=== PATIENT | female | born 1960 | race Caucasian/White ===

== ENCOUNTER → 2018-04-04 08:30 | Outpatient (CLI) | payer BC, SELFPAY ==
--- NOTE | 2018-04-04 | DI.MG.S_ITS ---
BILATERAL DIGITAL SCREENING MAMMOGRAM 3D/2D WITH CAD: 04/04/2018 CLINICAL: Routine screening. Family history of breast cancer. Comparison is made to exams dated: 03/30/2017 mammogram, 06/23/2015 mammogram, and 12/16/2012 mammogram - [facility]. The tissue of both breasts is extremely dense, which lowers the sensitivity of mammography. Current study was also evaluated with a Computer Aided Detection (CAD) system. No significant masses, calcifications, or other findings are seen in either breast. There has been no significant interval change. IMPRESSION: NEGATIVE There is no mammographic evidence of malignancy. A 1 year screening mammogram is recommended. This exam was interpreted at Station ID: [id number]. NOTE: For mammograms, a report in lay terms will be sent to the patient. Approximately 15% of breast malignancies will not be visualized mammographically. In the management of a palpable breast mass, a negative mammogram must not discourage biopsy of a clinically suspicious lesion. Electronically Signed By: Alex [email or web address]/[email or web address]:04/04/2018 09:34:30 letter sent: Normal Exam ACR BI-RADS Category 1: Negative [id number]
[2018-04-04 12:07] LABS: Add Manual Diff / Slide Review NO; Basophils Absolute Auto 0 /uL (0-100); Basophils Percent Auto 0.6 % (0-2); Eosinophils Absolute Auto 0 /uL (0-450); Eosinophils Percent Auto 0.7 % (2-4); Hematocrit 42.6 % (36-46); Hemoglobin 14.5 g/dL (12.0-16.0); Lymphocytes Absolute Auto 1700 /uL (1100-4500); Lymphocytes Percent Auto 42.3 % (25-40); Mean Corpuscular Hemoglobin 32.5 PG (26-34); Mean Corpuscular Volume 95.8 fL (80-100); Monocytes Absolute Auto 400 /uL (0-900); Monocytes Percent Auto 10.4 % (3-14); Neutrophils Absolute Auto 1800 /uL (1500-7000); Platelet Count 362 X10^3/uL (150-400); Red Blood Cell Count 4.44 X10^6/uL (4.0-5.2); Red Cell Distribution Width 13.1 % (11.6-14.8)
[2018-04-04 12:18] LABS: Alanine Aminotransferase 13 IU/L (9-52); Albumin Globulin Ratio 1.5 (1.0-2.8); Alkaline Phosphatase 72 U/L (38-126); Aspartate Aminotransferase 33 IU/L (14-36); BUN Creatinine Ratio 18.8 (6-22); Bilirubin Total 0.5 mg/dL (0.2-1.3); Blood Urea Nitrogen 15 mg/dL (7-17); Calcium 9.8 mg/dL (8.4-10.2); Carbon Dioxide 30 mmol/L (22-32); Chloride 98 mmol/L (98-107); Cholesterol 266 mg/dL (140-199); Estimated Glomerular Filt Rate > 60.0 mL/min (>60); Globulin 3.4 g/dL (1.7-4.1); Glucose 121 mg/dL (70-100); HDL Cholesterol 92 mg/dL (40-60); HEMOLYSIS < 15 (0-50); LDL Cholesterol Calculated 151 mg/dL (<100); Potassium 3.9 mmol/L (3.4-5.1); Sodium 141 mmol/L (137-145); Total Protein 8.4 g/dL (6.3-8.2); Triglycerides 117 mg/dL (35-150)
[2018-04-04 13:01] LABS: Thyroid Stimulating Hormone 0.27 uIU/mL (0.47-4.68)
== END ==
PROVIDERS: PCP Family Medicine; Visit Provider Family Medicine
DX: Z12.31 Encounter for screening mammogram for malignant neoplasm of breast (principal); Z80.3 Family history of malignant neoplasm of breast; I10 Essential (primary) hypertension
CPT/HCPCS: 36415; 77063; 77067; 80053; 80061; 84443; 85025

== ENCOUNTER → 2018-09-16 10:52 | Outpatient (CLI) | payer BC, SELFPAY ==
[2018-09-16 13:08] LABS: Thyroid Stimulating Hormone 0.41 uIU/mL (0.47-4.68)
== END ==
PROVIDERS: PCP Family Medicine; Visit Provider Family Medicine
DX: E03.9 Hypothyroidism, unspecified (principal)
CPT/HCPCS: 36415; 84443

== ENCOUNTER → 2018-11-25 12:51 | Outpatient (CLI) | payer BC, SELFPAY ==
[2018-11-25 14:35] LABS: Thyroid Stimulating Hormone 0.33 uIU/mL (0.47-4.68)
== END ==
PROVIDERS: PCP Family Medicine; Visit Provider Family Medicine
DX: E03.9 Hypothyroidism, unspecified (principal); R79.89 Other specified abnormal findings of blood chemistry
CPT/HCPCS: 36415; 84443

== ENCOUNTER → 2019-07-26 08:01 | Outpatient (CLI) | payer BC, SELFPAY ==
[2019-07-26 09:50] LABS: Add Manual Diff / Slide Review NO; Basophils Absolute Auto 0 /uL (0-100); Basophils Percent Auto 0.7 % (0-2); Eosinophils Absolute Auto 200 /uL (0-450); Eosinophils Percent Auto 5.5 % (2-4); Hematocrit 42.3 % (36-46); Hemoglobin 14.5 g/dL (12.0-16.0); Lymphocytes Absolute Auto 1900 /uL (1100-4500); Lymphocytes Percent Auto 44.7 % (25-40); Mean Corpuscular HGB Conc 34.3 % (30-36); Mean Corpuscular Volume 99.1 fL (80-100); Monocytes Absolute Auto 500 /uL (0-900); Monocytes Percent Auto 12.5 % (3-14); Neutrophils Absolute Auto 1600 /uL (1500-7000); Neutrophils Percent Auto 36.6 % (50-75); Platelet Count 332 X10^3/uL (150-400); Red Blood Cell Count 4.26 X10^6/uL (4.0-5.2); Red Cell Distribution Width 12.9 % (11.6-14.8); White Blood Cell Count 4.2 X10^3/uL (4.5-11.0)
[2019-07-26 10:03] LABS: Alanine Aminotransferase 11 IU/L (<35); Albumin Globulin Ratio 1.5 (1.0-2.8); Alkaline Phosphatase 70 U/L (38-126); Aspartate Aminotransferase 37 IU/L (14-36); BUN Creatinine Ratio 21.6 (6-22); Bilirubin Total 0.7 mg/dL (0.2-1.3); Blood Urea Nitrogen 16 mg/dL (7-17); Calcium 10.1 mg/dL (8.4-10.2); Carbon Dioxide 32 mmol/L (22-32); Chloride 100 mmol/L (98-107); Cholesterol 286 mg/dL (140-199); Estimated Glomerular Filt Rate > 60.0 mL/min (>60); Globulin 3.4 g/dL (1.7-4.1); Glucose 111 mg/dL (70-100); HDL Cholesterol 103 mg/dL (40-60); HEMOLYSIS < 15 (0-50); LDL Cholesterol Calculated 164 mg/dL (<100); Sodium 141 mmol/L (137-145); Total Protein 8.4 g/dL (6.3-8.2); Triglycerides 95 mg/dL (35-150)
[2019-07-26 10:33] LABS: Thyroid Stimulating Hormone 0.77 uIU/mL (0.47-4.68)
== END ==
PROVIDERS: PCP Family Medicine; Referring Provider Family Medicine; Visit Provider Family Medicine
DX: E03.9 Hypothyroidism, unspecified (principal); E78.5 Hyperlipidemia, unspecified; I10 Essential (primary) hypertension
CPT/HCPCS: 36415; 80053; 80061; 84443; 85025

== ENCOUNTER → 2020-03-04 09:02 | Outpatient (CLI) | payer BC, SELFPAY ==
[2020-03-04 09:41] LABS: Add Manual Diff / Slide Review NO; Basophils Absolute Auto 0 /uL (0-100); Basophils Percent Auto 0.8 % (0-2); Eosinophils Absolute Auto 100 /uL (0-450); Eosinophils Percent Auto 3.1 % (2-4); Hematocrit 40.6 % (36-46); Lymphocytes Absolute Auto 1600 /uL (1100-4500); Lymphocytes Percent Auto 42.1 % (25-40); Mean Corpuscular HGB Conc 34.4 % (30-36); Mean Corpuscular Hemoglobin 33.6 PG (26-34); Mean Corpuscular Volume 97.5 fL (80-100); Monocytes Absolute Auto 400 /uL (0-900); Monocytes Percent Auto 9.8 % (3-14); Neutrophils Absolute Auto 1600 /uL (1500-7000); Neutrophils Percent Auto 44.2 % (50-75); Platelet Count 332 X10^3/uL (150-400); Red Blood Cell Count 4.16 X10^6/uL (4.0-5.2); White Blood Cell Count 3.7 X10^3/uL (4.5-11.0)
[2020-03-04 10:02] LABS: Cholesterol 295 mg/dL (140-199); Triglycerides 94 mg/dL (35-150)
[2020-03-04 10:05] LABS: Erythrocyte Sedimentation Rate 16 MM/HR (0-20)
[2020-03-04 10:13] LABS: HDL Cholesterol 124 mg/dL (40-60); LDL Cholesterol Calculated 152 mg/dL (<100)
[2020-03-04 10:33] LABS: C-Reactive Protein Quant 0.7 mg/dL (<1.0)
[2020-03-06 15:11] LABS: ANA Screen, IFA Negative (.)
== END ==
PROVIDERS: PCP Family Medicine; Referring Provider Family Medicine; Visit Provider Family Medicine
DX: I10 Essential (primary) hypertension (principal); L53.9 Erythematous condition, unspecified
CPT/HCPCS: 36415; 80061; 85025; 85651; 86038; 86140

== ENCOUNTER → 2020-03-20 09:02 | Outpatient (CLI) | payer BC, SELFPAY ==
--- NOTE | 2020-03-20 09:03 | DI.MG.S_ITS ---
BILATERAL DIGITAL SCREENING MAMMOGRAM 3D/2D WITH CAD: 03/20/2020 CLINICAL: Routine screening. Family history of breast cancer. Comparison is made to exams dated: 04/04/2018 mammogram, 03/30/2017 mammogram, and 06/23/2015 mammogram - [facility]. The tissue of both breasts is heterogeneously dense. This may lower the sensitivity of mammography. Current study was also evaluated with a Computer Aided Detection (CAD) system. No significant masses, calcifications, or other findings are seen in either breast. There has been no significant interval change. IMPRESSION: NEGATIVE There is no mammographic evidence of malignancy. A 1 year screening mammogram is recommended. This exam was interpreted at Station ID: [id number]. NOTE: For mammograms, a report in lay terms will be sent to the patient. Approximately 15% of breast malignancies will not be visualized mammographically. In the management of a palpable breast mass, a negative mammogram must not discourage biopsy of a clinically suspicious lesion. Electronically Signed By: Yonis upton/jesus:03/22/2020 07:23:51 letter sent: Normal Exam ACR BI-RADS Category 1: Negative [id number]
== END ==
PROVIDERS: PCP Family Medicine; Referring Provider Family Medicine; Visit Provider Family Medicine
DX: Z12.31 Encounter for screening mammogram for malignant neoplasm of breast (principal); Z80.3 Family history of malignant neoplasm of breast
CPT/HCPCS: 77063; 77067

== ENCOUNTER → 2020-07-17 11:50 | Outpatient (CLI) | payer BC, SELFPAY ==
[2020-07-17 12:57] LABS: Add Manual Diff / Slide Review NO; Basophils Absolute Auto 0 /uL (0-100); Basophils Percent Auto 0.7 % (0-2); Eosinophils Absolute Auto 100 /uL (0-450); Eosinophils Percent Auto 2.2 % (2-4); Hematocrit 42.2 % (36-46); Hemoglobin 14.1 g/dL (12.0-16.0); Lymphocytes Absolute Auto 1600 /uL (1100-4500); Lymphocytes Percent Auto 31.2 % (25-40); Mean Corpuscular HGB Conc 33.3 % (30-36); Mean Corpuscular Hemoglobin 33.1 PG (26-34); Mean Corpuscular Volume 99.3 fL (80-100); Monocytes Absolute Auto 500 /uL (0-900); Neutrophils Absolute Auto 2900 /uL (1500-7000); Neutrophils Percent Auto 56.9 % (50-75); Platelet Count 329 X10^3/uL (150-400); Red Blood Cell Count 4.25 X10^6/uL (4.0-5.2); Red Cell Distribution Width 12.9 % (11.6-14.8); White Blood Cell Count 5.1 X10^3/uL (4.5-11.0)
[2020-07-17 13:31] LABS: Alanine Aminotransferase 14 IU/L (<35); Albumin 4.4 g/dL (3.5-5.0); Albumin Globulin Ratio 1.4 (1.0-2.8); Alkaline Phosphatase 72 U/L (38-126); Aspartate Aminotransferase 45 IU/L (14-36); BUN Creatinine Ratio 26.4 (6-22); Bilirubin Total 0.5 mg/dL (0.2-1.3); Blood Urea Nitrogen 19 mg/dL (7-17); Calcium 9.8 mg/dL (8.4-10.2); Carbon Dioxide 33 mmol/L (22-32); Chloride 101 mmol/L (98-107); Cholesterol 267 mg/dL (140-199); Estimated Glomerular Filt Rate > 60.0 mL/min (>60); Globulin 3.1 g/dL (1.7-4.1); Glucose 111 mg/dL (80-110); HEMOLYSIS < 15 (0-50); Potassium 3.4 mmol/L (3.4-5.1); Sodium 142 mmol/L (137-145); Total Protein 7.5 g/dL (6.3-8.2); Triglycerides 50 mg/dL (35-150)
[2020-07-17 13:57] LABS: TSH w/ Reflex to FT4 0.47 uIU/mL (0.47-4.68)
[2020-07-17 14:20] LABS: HDL Cholesterol 112 mg/dL (40-60); LDL Cholesterol Calculated 145 mg/dL (<100)
[2020-07-17 18:35] LABS: Vitamin D 25 Hydroxy (D3) 57.9 ng/mL (30.0-100.0)
== END ==
PROVIDERS: PCP Family Medicine; Referring Provider Family Medicine; Visit Provider Family Medicine
DX: E03.9 Hypothyroidism, unspecified (principal); I10 Essential (primary) hypertension; I47.1 Supraventricular tachycardia
CPT/HCPCS: 36415; 80053; 80061; 82306; 84443; 85025

== ENCOUNTER → 2020-08-02 14:06 | Outpatient (CLI) | payer BC, SELFPAY ==
--- NOTE | 2020-08-02 14:07 | DI.RAD.S_ITS ---
PROCEDURE: XR ANKLE RT MIN 3V INDICATIONS: Right ankle pain and swelling TECHNIQUE: 3 views of the ankle were acquired. COMPARISON: None. FINDINGS: Bones: Status post ORIF of a distal tibial fracture. There are severe degenerative changes of the tibiotalar joint, likely posttraumatic arthritis. No acute fracture. Bony fragments distal to the fibular tip are well corticated and are likely due to remote trauma. Soft tissues: No tibiotalar joint effusion. Achilles tendon appears normal. 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 Dictated by: Mode Hoyos M.D. on 08/02/2020 at 15:09 Approved by: Mode Hoyos M.D. on 08/02/2020 at 15:11
== END ==
PROVIDERS: PCP Family Medicine; Referring Provider Family Medicine; Visit Provider Family Medicine
DX: M25.579 Pain in unspecified ankle and joints of unspecified foot (principal)
CPT/HCPCS: 73610

== ENCOUNTER 2020-10-31 10:12 | Emergency (ER) | payer BC, SELFPAY ==
[2020-10-31 11:20] VITALS: BP 149/77; PULSE 75; RESP 18; TEMP 36.1; O2SAT 99; BMI 20.9
--- NOTE | 2020-10-31 11:29 | DI.RAD.S_ITS ---
PROCEDURE: XR HAND LT MIN 3V INDICATIONS: fall, deformity, swelling TECHNIQUE: 3 views of the hand(s) acquired. COMPARISON: [facility], CR, XR WRIST LT MIN 3V, 10/31/2020, 11:33. FINDINGS: Bones: A mildly displaced, impacted, intra-articular distal radius fracture can be seen. No fractures of the bones of the hand can be seen. Degenerative changes are seen throughout, which are most prominent involving the 1st carpometacarpal joint. Milder degenerative changes are seen elsewhere. Soft tissues: No suspicious soft tissue calcifications. IMPRESSION: Distal radius fracture, with intra-articular involvement. Dictated by: Aman Crawford M.D. on 10/31/2020 at 10:58 Approved by: Aman Crawford M.D. on 10/31/2020 at 11:00
--- NOTE | 2020-10-31 11:29 | DI.RAD.S_ITS ---
PROCEDURE: XR WRIST LT MIN 3V INDICATIONS: fall, deformity, swelling TECHNIQUE: 4 views of the wrist were acquired. COMPARISON: [facility], CR, XR HAND LT MIN 3V, 10/31/2020, 11:33. FINDINGS: Bones: There is a comminuted distal radius fracture with intra-articular involvement. Impaction fracture fragments can be seen. No additional fractures are detected. No radiocarpal dislocation can be seen. Degenerative changes are seen throughout, which are most prominent involving the 1st carpometacarpal joint. Milder degenerative changes are seen elsewhere. Scaphoid view: No navicular fractures are seen. Soft tissues: No suspicious soft tissue calcifications. IMPRESSION: Comminuted, impacted distal radius fracture, with intra-articular involvement. If it would be helpful for clinical management decision making, please consider a dedicated wrist CT for further evaluation. Dictated by: Aman Crawford M.D. on 10/31/2020 at 11:00 Approved by: Aman Crawford M.D. on 10/31/2020 at 11:01
--- NOTE | 2020-10-31 12:47 | ED.FALL ---
HPI - Fall General Chief Complaint: Fall Stated Complaint: fell and maybe broken left wrist Time Seen by Provider: 10/31/20 12:47 Mode of arrival: Ambulatory History of Present Illness HPI Narrative: Patient is a 5-year-old female who presents with left wrist pain. She said she was caring I spoke it yesterday she has appear crabbing she tripped and fell. She initially had a little bit of swelling on her hand however today hand is significantly swollen braces are extremely tight on her wrist. She has no numbness tingling weakness no other injury not on any antiplatelet or anticoagulation medication Related Data Home Medications Medication Instructions Recorded Confirmed cholecalciferol (vitamin D3) 25 25 mcg PO DAILY 11/19/19 08/02/20 mcg (1,000 unit) capsule Previous Rx's Medication Instructions Recorded desonide 0.05 % topical ointment 1 applic TOPICAL BID #60 g 03/04/20 bumetanide 1 mg tablet 1 mg PO QDAY #90 tab 08/02/20 levothyroxine 88 mcg tablet See Rx Instructions .ROUTE 08/02/20 .COMPLEX #90 tab metoprolol succinate 50 mg 50 mg PO QDAY #90 tab 08/02/20 tablet,extended release 24 hr (Toprol XL) potassium chloride 10 mEq 10 meq PO BID #180 tab 08/02/20 tablet,extended release hydrocodone 5 mg-acetaminophen 325 1 tab PO Q6H PRN #10 tab 10/31/20 mg tablet Allergies Allergy/AdvReac Type Severity Reaction Status Date / Time No Known Drug Allergies Allergy Verified 08/02/20 13:31 Review of Systems Review of Systems Narrative: GENERAL: Denies chills, fatigue, malaise, fever, sweats, travel HEENT: Denies sinus pain, ear pain, sore throat, difficulty swallowing, neck pain RESPIRATORY: Denies dyspnea, cough, wheezing, hemoptysis, sputum. CARDIOVASCULAR: Denies chest pain, palpitations, orthopnea, edema GASTROINTESTINAL: Denies nausea, vomiting, abdominal pain, diarrhea, constipation, melena. : Denies dysuria, frequency, incontinence, hematuria, urinary retention, flank pain. MUSCULOSKELETAL: See HPI SKIN: No rash, no erythema, no pruritus NEUROLOGIC: Denies weakness, dizziness, headache, numbness, change in speech, confusion PSYCHIATRIC: No concerning psychosocial issues. 12 point review of systems is negative except for those stated above and HPI Patient History Medical History Essential hypertension (10/06/11) Hypothyroidism (03/02/17) Supraventricular tachycardia (03/08/15) Surgical History History of carpal tunnel repair History of tonsillectomy Status post delivery Status post delivery Status post cholecystectomy Status post hysterectomy Family History Grandfather Stroke Grandfather Stroke Social History Smoking Status: Never smoker Smoking Status: Never smoker Exam Initial Vital Signs Initial Vital Signs: Vital Signs Temperature 96.9 F L 10/31/20 11:20 Pulse Rate 75 10/31/20 11:20 Respiratory Rate 18 10/31/20 11:20 Blood Pressure 149/77 H 10/31/20 11:20 Pulse Oximetry 99 10/31/20 11:20 GENERAL: Well-appearing, well-nourished and in no acute distress. CARDIOVASCULAR: peripheral pulses in tact, cap refill <2 sec RESPIRATORY: No respiratory distress, speaks in full sentences without difficulty EXTREMITIES: Normal range of motion, no clubbing or edema. Neurovascularly intact Significant left hand swelling tenderness distal radial pulse. Apparently bracelets were on quite tight I can see be in dense on her wrist and forearm. Good strong distal radial pulse tender over distal radius. Dorsal hand swelling able to move fingers it is soft unable to make okay sign due to swelling and pain NEUROLOGICAL: Cranial nerves II through XII grossly intact. Normal gait and speech. SKIN: Warm, dry, no petechiae, no rashes or lesions. Procedures Orthopedic Splinting/Casting Injury #1: Upper Extremity Injury Location: wrist Upper Extremity Immobilizer: posterior splint Other Orthopedic Equipment: other (Sling) Post splinting neuro exam: intact and no change Post splinting vascular exam: no change Placed by: Nursing Course Orders Ordered: ED Orders 10/31/20 11:29 XR hand LT min 3V Stat XR wrist LT min 3V Stat Vital Signs Vital signs: Vital Signs - 8 hr 10/31/20 13:27 Pulse Rate 71 Respiratory Rate 18 Blood Pressure 175/85 H Pulse Oximetry 100 MDM - Fall Imaging Data Extremity x-ray #1: Radiologist's Impression: PROCEDURE:? XR WRIST LT MIN 3V ? INDICATIONS: fall, deformity, swelling ? TECHNIQUE:? 4 views of the wrist were acquired.? ? COMPARISON:? [facility], XR HAND LT MIN 3V, 10/31/2020, 11:33. ? FINDINGS:? ? Bones:? There is a comminuted distal radius fracture with intra-articular involvement.? Impaction fracture fragments can be seen. ? No additional fractures are detected. No radiocarpal dislocation can be seen.? Degenerative changes are seen throughout, which are most prominent involving the 1st carpometacarpal joint.? Milder degenerative changes are seen elsewhere.? ? Scaphoid view:? No navicular fractures are seen. ? Soft tissues:? No suspicious soft tissue calcifications.? ? ? IMPRESSION:? Comminuted, impacted distal radius fracture, with intra-articular involvement.? ? If it would be helpful for clinical management decision making, please consider a dedicated wrist CT for further evaluation.? ? Dictated by: Aman Crawford M.D. on 10/31/2020 at 11:00 ? ? Extremity x-ray #2: Radiologist's Impression: PROCEDURE:? XR HAND LT MIN 3V ? INDICATIONS:? fall, deformity, swelling ? TECHNIQUE:? 3 views of the hand(s) acquired.? ? COMPARISON:? [facility], XR WRIST LT MIN 3V, 10/31/2020, 11:33. ? FINDINGS:? ? Bones:? A mildly displaced, impacted, intra-articular distal radius fracture can be seen. ? No fractures of the bones of the hand can be seen.? Degenerative changes are seen throughout, which are most prominent involving the 1st carpometacarpal joint.? Milder degenerative changes are seen elsewhere.? ? Soft tissues:? No suspicious soft tissue calcifications.? ? ? IMPRESSION:? Distal radius fracture, with intra-articular involvement. ? ? Dictated by: Aman Crawford M.D. on 10/31/2020 at 10:58 ? ? [facility] Narrative Medical decision making narrative: Patient's bracelets were extremely tight on her arm 1 of them required to be cut off. If this should help with swelling now that they have been removed. I discussed with patient about elevating and ice. At this time there is no sign of compartment syndrome but she does have significant swelling on dorsal side of her hand. For this reason she is placed in a posterior splint and not a sugar-tong. She receives most of her medical care here in her PCP is here as well. I have given her local orthopedics for follow-up. Discharge Plan Departure Patient Disposition: Home Clinical Impression: Distal radius fracture, left Qualifiers: Encounter type: initial encounter Fracture type: closed Fracture morphology: other fracture Qualified Code(s): S52.592A - Other fractures of lower end of left radius, initial encounter for closed fracture Instructions: DI for Wrist Fracture Activity Restrictions/Additional Instructions: *You have been diagnosed with distal radial fracture *What to do: There is high probability that you will need surgery. Please keep arm and splint at all times including showering. Wear sling as needed. Please elevate as often as possible and place ice 20-30 minutes at a time *Continue to take medications as directed Lynn 1 tablet every 4-6 hours if needed for pain *Follow up with your primary care provider in 2-3 days *Return to ER if you should have increasing swelling, inability to move fingers, numbness tingling any new, worsening or concerning symptoms CONTROLLED SUBSTANCE DISCHARGE (Narcotoic/benzodiazepine/Flexeril/Phenergan) 1. You have been prescribed narcotic medications, it does have acetaminophen/Tylenol/paracetamol in it, DO NOT TAKE MORE THAN 4,00mg in 24 hours of Tylenol. TRAMADOL DOES NOT CONTAIN TYLENOL 2. Please understand that we cannot provide further refills of narcotics, benzodiazepines or controlled substances through the ED and her pain management will need to be through your provider. 3. While on these medications you cannot drive or operate heavy machinery. 4. You cannot sign legal documents or perform any duties such as this. 5. As long as you're taking opiate pain medications he should also be taking a stool softener such as Colace, Dulcolax, MiraLAX or prune juice, to help avoid constipation. Prescriptions: New hydrocodone-acetaminophen 5-325 mg tablet 1 tab PO Q6H PRN (Reason: pain) Qty: 10 RF: 0 No Action desonide 0.05 % ointment 1 applic topical BID Qty: 60 RF: 0 potassium chloride 10 mEq tablet extended release 10 meq PO BID Qty: 180 RF: 3 metoprolol succinate [Toprol XL] 50 mg tablet extended release 24 hr 50 mg PO QDAY Qty: 90 RF: 3 levothyroxine 88 mcg tablet See Rx Instructions .ROUTE .COMPLEX Qty: 90 RF: 2 bumetanide 1 mg tablet 1 mg PO QDAY Qty: 90 RF: 3 cholecalciferol (vitamin D3) 25 mcg (1,000 unit) capsule 25 mcg PO DAILY RF: 0 Referrals: [facility] [Provider Group] Anthony Go MD [Primary Care Provider] -
[2020-10-31 13:27] VITALS: BP 175/85; PULSE 71; RESP 18; O2SAT 100
== END 2020-10-31 13:27 | disposition home or self-care (01) ==
PROVIDERS: Emergency Provider Emergency Medicine; PCP Family Medicine
DX: S52.592A Other fractures of lower end of left radius, initial encounter for closed fracture (principal); W19.XXXA Unspecified fall, initial encounter
CPT/HCPCS: 29125; 73110; 73130; 99283

== ENCOUNTER → 2020-11-08 14:38 | Outpatient (CLI) | payer BC, SELFPAY ==
[2020-11-08 17:44] LABS: COVID19 -Nasal RAPID Negative (Negative)
== END ==
PROVIDERS: PCP Family Medicine; Visit Provider Nurse Practitioner Family
DX: Z01.812 Encounter for preprocedural laboratory examination (principal); Z20.822 Contact with and (suspected) exposure to COVID-19
CPT/HCPCS: 87635

== ENCOUNTER 2020-11-11 08:19 | Day surgery (SDC) | payer BC, SELFPAY ==
[2020-11-08 08:17] VITALS: BMI 21.2
[2020-11-11] VITALS (8 sets, daily range): BP systolic 100–139; BP diastolic 64–83; PULSE 53–78; RESP 10–16; TEMP 36.4–37.3; O2SAT 98–100; BMI 21.2
--- NOTE | 2020-11-11 08:53 | PM.PREOP ---
Pre-operative Note Interval Note History & Physical reviewed/Exam performed by Physician: Yes Changes to H&P: No
[2020-11-11] MEDS: LACTATED RINGERS 1,000 ML 42 ML IV ×2 (08:55→11:29)
[2020-11-11] MEDS: CEFAZOLIN 1 GM VIAL 2 GM IV (09:41)
--- NOTE | 2020-11-11 09:52 | SUR.OPER ---
Supine on padded OR bed, head on pillow, arms secured on padded arm boards at <90 degrees abduction, legs uncrossed, safety belt at thigh, tape over blanket over lower legs.
[2020-11-11] MEDS: BUPIVACAINE 0.25% W/ EPI 30 ML VIAL INJ (10:03)
--- NOTE | 2020-11-11 11:12 | P.OP_ITS ---
Operative Date/Time/Diagnoses Date of procedure: 11/11/20 Time of procedure: 10:00 Pre-op diagnosis: Left intra-articular distal radius fracture Post-op diagnosis: same Procedure & Clinicians Procedure: Open reduction internal fixation of an intra-articular distal radius fracture Same procedure as scheduled: Yes Indications: Displaced intra-articular distal radius fracture Surgeon: Stan Enriquez Click Yes if Unassisted: Yes Anesthesia Type: General Operative Notes Findings: Displaced intra-articular fragment involving the sigmoid notch of the distal radius fracture. Closure Type: primary Specimen(s): none sent Applied: implant(s) ([employer] volar pin plate) Estimated Blood Loss (mL): 5 Tourniquet time (min): 67 Procedure in detail: On date of service, patient was met in the holding area where the operative site was signed and witnessed by the OR staff. The surgery was once again discussed with the patient and any remaining questions or concerns were answered to the patient's full satisfaction. Time-out was performed verifying patient's name procedure and operative site. Patient was taken back to the operating theater and placed on the operating table in a supine position. Great care was taken to ensure that all bony prominences were appropriately padded. Well-padded tourniquet was placed up along the upper extremity. Another time-out was performed verifying patient's name, procedure, and operative site. The upper extremity was then prepped and draped in the normal sterile fashion. Esmarch was used to exsanguinate the limb and the tourniquet was turned up to 250 mm of mercury. Fifteen blade was used to expose the distal radius. A dorsal incision was made. This was centered over the radiocarpal joint just ulnar to Gurwinder's tubercle. Ten blade used to incise the skin and fascial tissue. Deep knife was then used to continue sharp dissection until the extensor retinaculum was identified. The 3rd and 4th extensor compartments were opened. These were then retracted given its good visualization of the distal radius. Small opening was made into the radial carpal joint on the ulnar aspect of the distal radius. This gave us good visualization of the displacement of the articular fragment. Two point reduction forceps were used to reduce the dorsal ulnar articular fragment reducing the sigmoid notch as well as the articular surface. K-wire was placed for provisional fixation. C-arm was brought in to verify overall reduction. Once we were satisfied with the overall reduction, a plate was placed and held provisionally with K-wires. C-arm was once again used to verify plate posit ioning as well as reduction. At the volar buttress plate was placed securing the fragment. This was then secured more proximally with 3 fully-threaded cortical screws. This provided a good secure fixation of that articular fragment. For additional fixation the K- wire that was holding our provisional fixation was cut at the bony surface. The combination of the K-wire and the volar buttress plate provided a good overall reduction as well as fixation of the articular displaced fragment. The wound was then copiously irrigated. A small opening in the dorsal capsule was closed. Part of the extensor retinaculum was split and part of it was placed underneath the 4th extensor compartment covering the volar buttress plate. The rest of the retinaculum was then repaired in a normal anatomic fashion. The rest of the was closed in layered manner and the hand was cleaned dried and dressed patient was placed into a splint and taken to the PACU in stable condition. Complications: none Post-operative Condition: stable Disposition: PACU Plan for aftercare: Patient will come out of the splint next week. At that point there is no restrictions to range of motion. Limit lifting to 2-3 lb for the next 6 weeks.
[2020-11-11] MEDS: MORPHINE 10 MG/ML INJ IV ×2 (11:19→11:26)
[2020-11-11] MEDS: OXYCODONE/ACETAMINOPHEN 5/325 TABLET 1 TAB PO (11:40)
--- NOTE | 2020-11-11 15:28 | SUR.PHASEII ---
Late entry: Sister filled scripts at [place], pt redy to go, left in stable condition after assisted to dress.
== END 2020-11-11 12:30 | disposition home or self-care (01) ==
PROVIDERS: PCP Family Medicine; Referring Provider Orthopaedic Surgery; Visit Provider Orthopaedic Surgery
PROC: (CPT 25609; principal; 2020-11-11 10:00)
DX: S52.572A Other intraarticular fracture of lower end of left radius, initial encounter for closed fracture (principal); I10 Essential (primary) hypertension; E03.9 Hypothyroidism, unspecified; W19.XXXA Unspecified fall, initial encounter
CPT/HCPCS: 25609; J0690; J1100; J2250; J2270; J2405; J2704; J3010

== ENCOUNTER 2021-02-11 06:13 | Day surgery (SDC) | payer OTHER, SELFPAY ==
[2021-02-10 08:34] VITALS: BMI 21.2
[2021-02-11] VITALS (11 sets, daily range): BP systolic 91–128; BP diastolic 51–83; PULSE 50–81; RESP 10–16; TEMP 36.5–37.4; O2SAT 94–100; BMI 21.2
[2021-02-11] MEDS: ACETAMINOPHEN 325 MG TABLET 975 MG PO (07:00)
[2021-02-11] MEDS: GABAPENTIN 300 MG CAPSULE PO (07:01)
[2021-02-11] MEDS: SCOPOLAMINE 1 PATCH TOP (07:01)
[2021-02-11] MEDS: LACTATED RINGERS 1,000 ML 42 ML IV ×2 (07:01→10:15)
[2021-02-11 07:30] LABS: COVID19 -Nasal RAPID Negative (Negative)
--- NOTE | 2021-02-11 07:34 | PM.PREOP ---
Pre-operative Note COVID-19 COVID-19 status: Negative Interval Note History & Physical reviewed/Exam performed by Physician: Yes Changes to H&P: No
--- NOTE | 2021-02-11 07:55 | SUR.PREOP ---
Block start time [0743] . Monitoring initiated and maintained throughout procedure. Oxygen and medications given per anesthesiologist instructions. Patient remained stable throughout procedure, no adverse reactions noted. Block end time [0750].
[2021-02-11] MEDS: CEFAZOLIN 2 GM/20 ML SYRINGE IV (08:05)
--- NOTE | 2021-02-11 08:13 | PM.PROC.1 ---
Procedures Date/Time Date of procedure: 02/11/21 Time of procedure: 07:43 Nerve Block Time out performed: Yes Local anesthetic used: bupivacaine 0.25% Location of anesthetic used: RIGHT Amount of anesthesia used (mL): 15 Nerve blocks: femoral (adductor canal) Procedure successful: Yes Patient tolerated procedure: well and no complications Complications: none Additional comments: Adductor canal nerve block performed for post-op pain control at surgeon request. Patient was positioned with IV, O2, monitors and rescue meds available. Prepped and timeout performed. Target identified with continuous ultrasound guidance. 15mL of bupivicaine 0.25% was injected perineurally with intermittent aspiration and injection. No blood, no paresthesias, no acute complications. Ultrasound pic attained.
--- NOTE | 2021-02-11 08:20 | PM.PROC.1 ---
Procedures Date/Time Date of procedure: 02/11/21 Time of procedure: 07:45 Nerve Block Time out performed: Yes Local anesthetic used: bupivacaine 0.25% Location of anesthetic used: RIGHT Amount of anesthesia used (mL): 15 Nerve blocks: peroneal (popliteal) Procedure successful: Yes Patient tolerated procedure: well and no complications Complications: none Additional comments: Popliteal nerve block performed for post-op pain control at surgeon request. Patient was positioned with IV, O2, monitors and rescue meds available. Prepped and timeout performed. Target identified with continuous ultrasound guidance. 15mL of bupivicaine 0.25% was injected perineurally with intermittent aspiration and injection. No blood, no paresthesias, no acute complications. Ultrasound pic attained.
--- NOTE | 2021-02-11 08:26 | SUR.OPER ---
Supine on padded OR bed, head on pillow, arms secured on padded arm boards at <90 degrees abduction, legs uncrossed, safety belt at waist, tape over blanket over lower left leg, right leg draped free, gel bump under hip, blankets secures under lower leg ang thigh right.
[2021-02-11] MEDS: BUPIVACAINE 0.25% (PF) 30 ML, EPINEPHrine 0.15 MG INJ (08:34)
--- NOTE | 2021-02-11 11:09 | DI.RAD.S_ITS ---
PROCEDURE: XR ANKLE RT MIN 3V INDICATIONS: ANKLE FUSION RIGHT TECHNIQUE: 4 fluoroscopic images of the right ankle. COMPARISON: [facility], , XR ANKLE RT MIN 3V, 08/02/2020, 14:35. FINDINGS: Postsurgical fixation hardware is seen in the distal tibia and talus. IMPRESSION: Intraoperative images of the right ankle. Dictated by: Claudio Thompson M.D. on 02/11/2021 at 11:47 Approved by: Claudio Thompson M.D. on 02/11/2021 at 11:48
[2021-02-11] MEDS: fentaNYL 100 MCG/2 ML INJ IV ×2 (11:43→12:00)
--- NOTE | 2021-02-11 12:10 | P.OP_ITS ---
Operative Date/Time/Diagnoses Date of procedure: 02/11/21 Time of procedure: 08:30 Pre-op diagnosis: Posttraumatic ankle arthritis right M19.171 Equinus contracture right ankle M25.571 Post-op diagnosis: same Procedure & Clinicians Procedure: 1. Ankle arthrodesis open CPT 56257 right 2. Removal of implant deep CPT code 67468 3. Removal of implant deep CPT code 32121-99 4. Bone graft small, iliac crest CPT code 28828-46 5. Achilles tendon lengthening CPT code 02630-56 This procedure was performed with a modifier 22 due to increased difficulty regarding the multiple areas of old retained hardware/broken hardware requiring removal prior to ankle arthrodesis culminating in operative time approximately twice the length for standard ankle fusion. Same procedure as scheduled: Yes Indications: The patient is a 60-year-old female with right posttraumatic ankle arthritis. She is status post pilon fracture treated are reviewed 13 years ago with a staged fashion external fixator than ORIF. She has developed significant posttraumatic arthritis and equinus contracture. This has been worsening over the years. She is no longer getting relief from conservative treatments. She has requested ankle fusion. Due to the locations of her hardware she will require partial hardware removal Achilles lengthening and ankle fusion. The risks and benefits of the procedure have been discussed with the patient even opportunity to ask questions. The risks of surgery include but are not limited to infection, malunion, nonunion, persistence of pain, damage to nerves and blood vessels, posttraumatic arthritis, DVT, PE, cardiopulmonary complications and . The patient expressed a thorough understanding of the risks and benefits of surgery and has elected to proceed. Consent was signed in the office today. Surgeon: Melissa Fernández Click Yes if Unassisted: Yes Anesthesia Type: General, Peripheral nerve block and Local Operative Notes Findings: End-stage posttraumatic ankle arthritis with retained hardware. Mini frag plates along the anterior rim of the plafond were encased in bone with the strip screws but required removal for exposure and joint preparation. Additional separate incision was made for partial screw removal from the medial plate. Screws were removed from the distal cluster. One broken screw head was found and removed. Remainder of hardware was retained. The anterior rim of plate was noted to have stripped screws and did require extensive work to remove. Once this removed. The joint was prepped in the standard fashion. It was pinned into alignment bone graft was obtained from the iliac crest and mixed with allograft. An anterior plate was applied in compression. Closure Type: primary Specimen(s): none sent Prosthetic devices, grafts, tissues, transplants, or devices: [id number] anterior ankle fusion plate. With 4.2 locking screws in the talus and 4.5 locking screws in the tibia and 1x4.5 nonlocking screw in the tibia 7.0 monster screw headed, 40, partially threaded and washer Estimated Blood Loss (mL): 50 Blood products transfused: none Tourniquet time (min): 130 Procedure in detail: Patient was seen in the preoperative area the site of surgery was marked informed consent confirmed. The patient underwent a regional block with the anesthesia team for postoperative pain control. The patient was brought back to the operating room by the anesthesia team positioned supine on operative table. All bony prominences well padded. Well-padded thigh tourniquet was placed. An ipsilateral hip bump was placed. Blankets were stacked under the operative extremity elevated for ease of imaging. General anesthetic was administered. The operative extremity was prepped and draped in the standard sterile fashion. A formal time-out procedure was performed confirming the patient's side and site of surgery administration of appropriate preoperative antibiotics. All were in agreement. Implants were in the room and accounted for. There was an old anterior lateral ankle scar as well as the medial scar from the previous peel on fracture. Anterior lateral incision was used extended medially proximally and and distally and incorporated into anterior exposure. The Esmarch was used for exsanguination the tourniquet raised on the thigh to 250 mmHg. The skin incision was made with a 15 blade. This was taken down the sk in. Care was taken with dissection subcutaneously to protect the superficial branch of the peroneal nerve. This was scarred and stretched on exposure but was carefully retracted laterally. The retinaculum was opened over the EDL and the interval between the EHL and the EDL was exposed. The neurovascular bundle was retracted medially with the EHL. The tibia was exposed. A Bovie and elevator were used to expose the tibia and ankle joint. The peel on hardware was buried in bone including the anterior rim distal tibial mini frag plate and the anterior lateral plate. One screw was easily removed from the anterior rim plate the remainder of the median frag screws were stripped and imbedded in bone. This was exposed using a rongeur and osteotome. Additionally osteotome was used to remove anterior spurs to help expose the ankle joint. Additionally the mini frag plate was removed with the use of the saw and osteotomes incorporating it into the joint prep.. The separate incision was made medially for partial hardware removal from the distal cluster of the medial distal tibial plate. Several of the screws removed in total and a separate screw head was found loose in the plate and this was removed. Tendo-Achilles lengthening. The Achilles a demonstrated an equinus contracture and a triple yanet section technique was utilized for Achilles lengthening allowing us to get a good neutral dorsiflexion position. This was done through the posterior approach with the 15 blade. Once the hardware was removed the K-wire distractor was placed ankle was distracted. Osteotomes and curettes we used to remove the remainder of the cartilage there was just a small amount of cartilage left on the talus the rest was completely eburnated bone and additional prep was utilized with reaming the saw for the distal plafond. Once the cartilage was removed a 4 mm bur was used to prepare the ankle joint surfaces. This was burred back to bleeding cancellous bone. Next the fenestrating drill was used to create multiple drill holes on both sides of the joint facilitate healing. Then attention was turned to separate incision at the iliac crest and the [id number] jamshidi needle was used to obtain dowel and iliac aspirate for the bone graft. This was mixed with allograft bone 5 cc of demineralized fibers and 15 cc of cancellous chips and placed into the tibiotalar joint. After placing the bone graft the ankle was brought into 90? and pinned maintaining neutral dorsiflexion and approximately 5? of external rotation hindfoot valgus. This was checked on multiplanar intraoperative fluoroscopy was appropriate. At this time a anterior straight standard plate from the paragon set was placed against the bone this fit well. This was provisionally pinned in place with the olive wires. Next the drill guides for the 4.2 screws in the talar body were placed and and these were drilled and screwed into the talar body. The jig for the separate lag screw was determined that the trajectory would impinge on the retained medial plate so this jig was removed and a wire for a 7 0 monster screw was placed outside of the plate in a more posterior medial to anterior lateral direction. This was checked on multiplanar fluoroscopy and then countersink drilled and measured. 40 mm partially-threaded screw was placed to obtain compression. This did sink into the posterior medial bone a little so was partially removed and a washer was placed around the screw and then this was replaced. K-wires were removed before final compression. And positioning was again checked on fluoroscopy. This was appropriate and we returned attention to the plate with the additional talar neck locking screws were placed with 4.2 locking screws and then attention was turned to the tibial portion of the plate a nonlocking 4.5 screw was placed in the oblong hole to bring the plate down to the tibial shaft. Then additional locking 4.5 screws were placed in the remaining tibial holes. Final fluoroscopy in AP mortise and lateral planes demonstrated appropriate hardware alignment and the compression of the joint and bone graft fill. The tourniquet was released after 130 minutes. Hemostasis was achieved. The wound was irrigated. Was closed in a layered fashion with a 2-0 Vicryl deep 4-0 Monocryl in the subcutaneous layer and 3-0 and 4-0 nylon in the skin. Additional 20 cc of local anesthetic was injected at the incisions. A sterile dressing was placed with Xeroform gauze Webril and a bulky Guardado splint dressing. Drapes removed. All counts were correct. The patient was woken taken to the recovery room in good condition. There no immediate complications from this procedure. Complications: none Post-operative Condition: stable Disposition: PACU Plan for aftercare: Nonweightbearing right lower extremity elevate above the heart level as much as possible for the 1st 2 weeks after surgery. Will take aspirin starting postop day 1 for DVT prophylaxis. Will have oxycodone, Zofran and Toradol for pain and nausea control recommend Colace as a stool softener. Follow-up in 2 weeks for wound check. Sutures will stay in place for at minimum to 2wks
[2021-02-11] MEDS: OXYCODONE IR 5 MG TABLET PO (12:26)
--- NOTE | 2021-02-11 15:38 | SUR.PHASEII ---
phase 2-02/11/21--1450-Rx and instructions reviewed with patient.vss.meets discharge criteria. 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 csm unchanged. feels better/more comfortable. dressing rt hip and rt LE splint/dressings all cdi. maintained elevated p ost op and ice to sites (Rt hip and Rt posterior knee). 1510-iv out. dressed with help. ice off. 1520-issue with meds at [facility]. Meds given to RN who passed on to patient at bedside. David had only been able to bean picker machine operator oxycodone. 1530-Discharged nwb by w/chair to David's care/car with : all belongings, medications and rx for scooter, and discharge paperwork.
== END 2021-02-11 15:30 | disposition home or self-care (01) ==
PROVIDERS: PCP Family Medicine; Referring Provider Orthopaedic Surgery Foot and Ankle Surgery; Visit Provider Orthopaedic Surgery Foot and Ankle Surgery
PROC: (CPT 27870; principal; 2021-02-11 07:45)
DX: M19.171 Post-traumatic osteoarthritis, right ankle and foot (principal); T84.116A Breakdown (mechanical) of internal fixation device of bone of right lower leg, initial encounter; M24.571 Contracture, right ankle; T84.84XA Pain due to internal orthopedic prosthetic devices, implants and grafts, initial encounter
CPT/HCPCS: 27870; 27685; 20900; 64450; 73610; 76000; 87635; J0171; J0690; J1100; J1885; J2250; J2405; J2704; J3010

== ENCOUNTER → 2022-02-03 14:13 | Outpatient (CLI) | payer OTHER, SELFPAY ==
[2022-02-03 15:50] LABS: TSH w/ Reflex to FT4 0.63 uIU/mL (0.47-4.68)
== END ==
PROVIDERS: PCP Family Medicine; Referring Provider Family Medicine; Visit Provider Family Medicine
DX: E03.9 Hypothyroidism, unspecified (principal)
CPT/HCPCS: 36415; 84443

== ENCOUNTER → 2022-02-10 08:40 | Outpatient (CLI) | payer OTHER, SELFPAY ==
--- NOTE | 2022-02-10 08:41 | DI.RAD.S_ITS ---
PROCEDURE: XR KNEE LT 3V INDICATIONS: bilateral knee pain TECHNIQUE: 3 views of the knee were acquired. COMPARISON: None. FINDINGS: Bones: No fractures or dislocations. No suspicious bony lesions. Moderate medial compartment joint space loss and moderate tricompartment marginal spurs. There is hardware of a prior ACL repair. Soft tissues: Small joint effusion. No suspicious soft tissue calcifications. There are three dystrophic calcifications projecting posterior to the joint space, two of which appear corticated, likely chronic. IMPRESSION: 1. Moderate tricompartment osteoarthritis. 2. Prior ACL repair. 3. Small joint effusion. Dictated by: Sari Gómez M.D. on 02/10/2022 at 12:31 Approved by: Sari Gómez M.D. on 02/10/2022 at 12:32
--- NOTE | 2022-02-10 08:41 | DI.RAD.S_ITS ---
PROCEDURE: XR WRIST LT MIN 3V INDICATIONS: left wrist pain, prior fracture and ORIF TECHNIQUE: Four views of the wrist were acquired. COMPARISON: [facility], CR, XR WRIST 3+ VIEWS LEFT, 12/21/2020, 15:56. [facility], CR, XR WRIST LT MIN 3V, 10/31/2020, 11:33. FINDINGS: Bones: There is fixation hardware in the medial distal radius. The medial nail now traverses the ventral aspect of the radial cortex. The distal radioulnar joint appears widened but dorsal alignment remains normal. There is stable dorsal tilt of the lunate.There are severe degenerative changes in the triscaphe articulation. Soft tissues: Moderate soft tissue swelling over the ulnar styloid. This has increased compared to remote prior studies. An osseous fragment is noted on the scaphoid view projecting between the distal radius and ulna. A stable fragment is seen along the ventral aspect of the radiocarpal region. IMPRESSION: 1. Change in distal radius hardware position as described. 2. Transverse widening of the distal radioulnar joint with an intervening coarse calcification. 3. Stable dorsal tilt of the lunate. Findings are most suggestive of carpal ligamentous disruption and instability. Dictated by: Sari Gómez M.D. on 02/10/2022 at 12:24 Approved by: Sari Gómez M.D. on 02/10/2022 at 12:30
--- NOTE | 2022-02-10 08:41 | DI.RAD.S_ITS ---
PROCEDURE: XR KNEE RT 3V INDICATIONS: bilateral knee pain TECHNIQUE: 3 views of the knee were acquired. COMPARISON: None. FINDINGS: Bones: No fractures or dislocations. No suspicious bony lesions. Soft tissues: No joint effusion. No suspicious soft tissue calcifications. IMPRESSION: Intact right knee. Dictated by: Sari Gómez M.D. on 02/10/2022 at 12:31 Approved by: Sari Gómez M.D. on 02/10/2022 at 12:31
[2022-02-10 10:10] LABS: Add Manual Diff / Slide Review NO; Basophils Absolute Auto 0 /uL (0-100); Basophils Percent Auto 0.8 % (0-2); Eosinophils Absolute Auto 300 /uL (0-450); Eosinophils Percent Auto 6.2 % (2-4); Hematocrit 41.6 % (36-46); Hemoglobin 14.4 g/dL (12.0-16.0); Lymphocytes Absolute Auto 1700 /uL (1100-4500); Mean Corpuscular HGB Conc 34.5 % (30-36); Mean Corpuscular Hemoglobin 33.7 PG (26-34); Mean Corpuscular Volume 97.6 fL (80-100); Monocytes Absolute Auto 500 /uL (0-900); Monocytes Percent Auto 11.5 % (3-14); Neutrophils Absolute Auto 1700 /uL (1500-7000); Neutrophils Percent Auto 40.5 % (50-75); Platelet Count 369 X10^3/uL (150-400); Red Blood Cell Count 4.26 X10^6/uL (4.0-5.2); Red Cell Distribution Width 12.4 % (11.6-14.8); White Blood Cell Count 4.2 X10^3/uL (4.5-11.0)
[2022-02-10 10:41] LABS: Alanine Aminotransferase 16 IU/L (<35); Albumin 4.8 g/dL (3.5-5.0); Albumin Globulin Ratio 1.5 (1.0-2.8); Alkaline Phosphatase 84 U/L (38-126); Aspartate Aminotransferase 38 IU/L (14-36); BUN Creatinine Ratio 20.5 (6-22); Bilirubin Total 0.5 mg/dL (0.2-1.3); Blood Urea Nitrogen 18 mg/dL (7-17); Calcium 9.6 mg/dL (8.4-10.2); Carbon Dioxide 36 mmol/L (22-32); Chloride 97 mmol/L (98-107); Cholesterol 301 mg/dL (140-199); Estimated Glomerular Filt Rate > 60 mL/min (>60); Globulin 3.2 g/dL (1.7-4.1); Glucose 95 mg/dL (80-110); HEMOLYSIS < 15 (0-50); Potassium 4.1 mmol/L (3.4-5.1); Sodium 140 mmol/L (137-145); Triglycerides 80 mg/dL (35-150)
[2022-02-10 10:44] LABS: Microalbumin Urine Random 1.8 mg/dL (0-1.6)
[2022-02-10 10:45] LABS: Creatinine Urine Random 125.3 mg/dL; Microalbumi Creatinin Ratio Ur 14.3 ug/mg CR (<30)
[2022-02-10 10:51] LABS: HDL Cholesterol 133 mg/dL (40-60); LDL Cholesterol Calculated 152 mg/dL (<100)
== END ==
PROVIDERS: PCP Family Medicine; Referring Provider Family Medicine; Visit Provider Family Medicine
DX: M25.532 Pain in left wrist (principal); M79.89 Other specified soft tissue disorders; M17.12 Unilateral primary osteoarthritis, left knee; M25.462 Effusion, left knee; M25.561 Pain in right knee; M25.562 Pain in left knee; E03.9 Hypothyroidism, unspecified; I10 Essential (primary) hypertension; I47.1 Supraventricular tachycardia
CPT/HCPCS: 36415; 73110; 73562; 80053; 80061; 82043; 82570; 85025

== ENCOUNTER 2022-12-07 07:36 | Day surgery (SDC) | payer OTHER, SELFPAY ==
[2022-12-07 08:07] VITALS: BP 175/97; PULSE 91; RESP 16; TEMP 36.3; O2SAT 99; BMI 21.2
[2022-12-07] MEDS: LACTATED RINGERS 1,000 ML 150 ML IV (08:30)
[2022-12-07] MEDS: METOPROLOL TARTRATE 5 MG/5 ML INJ 1 MG IV (08:33)
[2022-12-07 08:45] VITALS: BP 161/97; PULSE 71; RESP 17; O2SAT 98
--- NOTE | 2022-12-07 09:12 | PM.HP.1 ---
History of Present Illness History of Present Illness Date Patient Seen: 12/07/22 Time Patient Seen: 09:13 Chief complaint: Colonoscopy Narrative: Connie is a 62 year old woman with rectal prolapse. She is scheduled for a surgery to repair her rectal prolapse. She is here for a colonoscopy today. [facility] Medical History Bilateral knee pain Essential hypertension (10/06/11) Hypothyroidism (03/02/17) Supraventricular tachycardia (03/08/15) Surgical History History of ankle surgery History of carpal tunnel repair History of left knee surgery History of open reduction and internal fixation (ORIF) procedure (11/11/20) History of surgery History of tonsillectomy Hx of appendectomy Hx of arthroscopy of left knee Status post delivery Status post delivery Status post cholecystectomy Status post hysterectomy Family History Grandfather Stroke Grandfather Stroke Social History household members: children Smoking Status: Never smoker alcohol intake: current Meds Home Medications and Allergies Home Medications Medication Instructions Recorded Confirmed Type cholecalciferol (vitamin D3) 25 25 mcg PO DAILY 11/19/19 12/07/22 History mcg (1,000 unit) capsule metoprolol succinate 50 mg 50 mg PO QDAY #90 tabs 06/29/22 12/07/22 Rx tablet,extended release 24 hr (Toprol XL) bumetanide 1 mg tablet 1 mg PO QDAY #90 tabs 08/15/22 12/07/22 Rx potassium chloride 10 mEq 10 meq PO BID #180 tabs 09/26/22 12/07/22 Rx tablet,extended release levothyroxine 88 mcg tablet 88 mcg PO DAILY #90 tabs 10/24/22 12/07/22 Rx neomycin 500 mg tablet 1 g (2 x 500 mg) PO TID 3 doses #6 11/01/22 Rx tabs sodium,potassium,mag sulfates 17.5 See Rx Instructions PO .COMPLEX 11/01/22 12/07/22 Rx gram-3.13 gram-1.6 gram oral soln #354 mL (Suprep Bowel Prep Kit) Allergies Allergy/AdvReac Type Severity Reaction Status Date / Time No Known Drug Allergies Allergy Verified 11/01/22 09:41 Exam Vital Signs (past 8 hours): - 12/07/22 08:07 12/07/22 08:45 Temperature 97.4 F L Pulse Rate 91 H 71 Respiratory Rate 16 17 Blood Pressure 175/97 H 161/97 H Pulse Oximetry 99 98 Oxygen Delivery Method Room Air Room Air Oxygen Delivery Method Room Air Const General: healthy appearing Assessment & Plan Assessment and plan (1) Rectal prolapse: Status: Acute Plan Connie is a 62 year old woman with rectal prolapse here for a colonoscopy. We reviewed the risks and benefits and she would like to proceed.
--- NOTE | 2022-12-07 09:29 | PM.OP.COLON ---
Operative Date/Time/Diagnoses Date of procedure: 12/07/22 Time of procedure: 09:29 Pre-op diagnosis: Rectal prolapse Post-op diagnosis: same Procedure & Clinicians Study performed: Colonoscopy Same procedure as scheduled: Yes Surgeon: Blake Bryant Procedure Notes Procedure in detail: Surgeon: Blake Bryant MD Anesthesia: Martina Kannan Procedure: The patient was brought to the endoscopy suite, placed in left lateral decubitus position. The patient was connected to monitoring devices. A time-out was performed. Sedation was administered. Once the patient was adequately sedated, a digital rectal exam was performed and was normal. The scope was then inserted and advanced as far as possible. The prep was inadequate to complete the procedure and was aborted. It is estimated that the scope reached a proximally the mid transverse colon. Only about 50% of the inner lumen of the bowel was visible because inadequate prep. The scope was straightened and removed. The patient was awakened and brought to recovery. Scope withdrawal time: Not applicable Sedation time: 7 minutes EBL: 0 Findings: Inadequate prep Post-procedure Disposition: PACU
[2022-12-07 09:32] VITALS: BP 130/88; PULSE 68; RESP 16; TEMP 36.2; O2SAT 98
[2022-12-07 09:37] VITALS: BP 145/93; PULSE 66; RESP 16; O2SAT 98
[2022-12-07 09:43] VITALS: BP 145/92; PULSE 62; RESP 16; TEMP 36.3; O2SAT 100
[2022-12-07 09:50] VITALS: BP 155/98; PULSE 77; RESP 16; TEMP 36.8; O2SAT 98
== END 2022-12-07 10:12 | disposition home or self-care (01) ==
PROVIDERS: PCP Family Medicine; Referring Provider Surgery; Visit Provider Surgery
PROC: 0DJD8ZZ Inspection of Lower Intestinal Tract, Via Natural or Artificial Opening Endoscopic (ICD-10-PCS; CPT 45378; principal; 2022-12-07 08:45)
DX: K62.3 Rectal prolapse (principal); Z53.09 Procedure and treatment not carried out because of other contraindication
CPT/HCPCS: 45378; J2704

== ENCOUNTER 2022-12-19 06:24 | Day surgery (SDC) | payer OTHER, SELFPAY ==
[2022-12-19 07:00] VITALS: BMI 21.2
[2022-12-19 07:06] VITALS: BP 164/88; PULSE 69; RESP 17; TEMP 36.3; O2SAT 100
[2022-12-19] MEDS: LACTATED RINGERS 1,000 ML 42 ML IV (07:14)
--- NOTE | 2022-12-19 07:54 | P.OP.PRE_ITS ---
Pre-operative Note COVID-19 COVID-19 status: Not tested Interval Note History & Physical reviewed/Exam performed by Physician: Yes Changes to H&P: No H&P completed within 30 days and has changed as indicated here:: Prep worked be tter this time. ASA Class (for procedural sedation): II
[2022-12-19 08:21] VITALS: BP 105/72; PULSE 73; RESP 13; TEMP 36.4; O2SAT 97
[2022-12-19 08:26] VITALS: BP 113/77; PULSE 77; RESP 20; O2SAT 98
--- NOTE | 2022-12-19 08:27 | P.OP.COLON_ITS ---
Operative Date/Time/Diagnoses Date of procedure: 12/19/22 Time of procedure: 08:27 Pre-op diagnosis: Procidentia Post-op diagnosis: same Procedure & Clinicians Study performed: Colonoscopy Same procedure as scheduled: Yes Surgeon: Blake Bryant Procedure Notes Procedure in detail: Surgeon: Blake Bryant MD Anesthesia: Arielle Chaudhari DO Procedure: The patient was brought to the endoscopy suite, placed in left lateral decubitus position. The patient was connected to monitoring devices. A time-out was performed. A digital rectal exam was performed before sedation was administered and the rectal tone was normal. Squeeze pressure was slightly less than average. No masses were palpated. Sedation was then administered. The scope was then inserted and advanced to the cecum where the appendiceal orifice was identified and photographed. The scope was then slowly withdrawn over g reater than 6 minutes. The mucosa was thoroughly inspected. No polyps or other lesions were noted until the mid and distal rectum which was erythematous. No ulceration was seen. The scope was retroflexed in the rectum. No other abnormalities were seen. The scope was straightened and removed. The patient was awakened and brought to recovery. Scope withdrawal time: 7 minutes Sedation time: 16 minutes EBL: 0 Findings: Normal colon Post-procedure Recommendations: Colonoscopy in 10 years Disposition: PACU
[2022-12-19 08:31] VITALS: BP 123/75; PULSE 76; RESP 17; O2SAT 100
[2022-12-19 08:37] VITALS: BP 133/83; PULSE 66; RESP 20; TEMP 36.5; O2SAT 99
[2022-12-19 08:40] VITALS: BP 133/83; PULSE 66; RESP 12; O2SAT 100
== END 2022-12-19 08:58 | disposition home or self-care (01) ==
PROVIDERS: PCP Family Medicine; Referring Provider Surgery; Visit Provider Surgery
PROC: 0DJD8ZZ Inspection of Lower Intestinal Tract, Via Natural or Artificial Opening Endoscopic (ICD-10-PCS; CPT 45378; principal; 2022-12-19 07:45)
DX: K62.3 Rectal prolapse (principal)
CPT/HCPCS: 45378; J2704

== ENCOUNTER → 2023-03-15 14:18 | Outpatient (CLI) | payer OTHER, SELFPAY ==
[2023-03-15 14:59] LABS: Add Manual Diff / Slide Review NO; Basophils Absolute Auto 0 /uL (0-100); Basophils Percent Auto 0.4 % (0-2); Eosinophils Absolute Auto 0 /uL (0-450); Eosinophils Percent Auto 0.6 % (2-4); Hematocrit 40.5 % (36-46); Hemoglobin 13.9 g/dL (12.0-16.0); Lymphocytes Absolute Auto 1800 /uL (1100-4500); Mean Corpuscular HGB Conc 34.4 % (30-36); Mean Corpuscular Hemoglobin 34.6 PG (26-34); Mean Corpuscular Volume 100.7 fL (80-100); Monocytes Absolute Auto 500 /uL (0-900); Monocytes Percent Auto 10.6 % (3-14); Neutrophils Absolute Auto 2700 /uL (1500-7000); Neutrophils Percent Auto 53.4 % (50-75); Platelet Count 294 X10^3/uL (150-400); Red Blood Cell Count 4.02 X10^6/uL (4.0-5.2); Red Cell Distribution Width 12.7 % (11.6-14.8); White Blood Cell Count 5.1 X10^3/uL (4.5-11.0)
[2023-03-15 15:25] LABS: Alanine Aminotransferase 13 IU/L (<35); Albumin 4.7 g/dL (3.5-5.0); Albumin Globulin Ratio 1.3 (1.0-2.8); Alkaline Phosphatase 80 U/L (38-126); Aspartate Aminotransferase 40 IU/L (14-36); BUN Creatinine Ratio 24.6 (6-22); Bilirubin Total 0.7 mg/dL (0.2-1.3); Blood Urea Nitrogen 16 mg/dL (7-17); Carbon Dioxide 28 mmol/L (22-32); Chloride 97 mmol/L (98-107); Estimated Glomerular Filt Rate > 60 mL/min (>60); Globulin 3.5 g/dL (1.7-4.1); Glucose 100 mg/dL (80-110); HEMOLYSIS < 15 (0-50); Potassium 3.5 mmol/L (3.4-5.1); Sodium 137 mmol/L (137-145); Total Protein 8.2 g/dL (6.3-8.2)
[2023-03-15 15:54] LABS: TSH w/ Reflex to FT4 0.43 uIU/mL (0.47-4.68)
[2023-03-15 16:30] LABS: Free T4, Direct Thyroxine 1.04 ng/dL (0.78-2.19)
[2023-03-15 17:30] LABS: Creatinine Urine Random 72.3 mg/dL
[2023-03-15 17:35] LABS: Microalbumi Creatinin Ratio Ur 37.3 ug/mg CR (<30); Microalbumin Urine Random 2.7 mg/dL (0-1.6)
[2023-03-20 03:09] LABS: Lipoprotein (a) 36.3 nmol/L (<75.0)
[2023-03-20 11:27] LABS: Apolipoprotein B 119 mg/dL (<90)
[2023-03-20 16:14] LABS: Cholesterol, Total 342 mg/dL (100-199); HDL-Cholesterol 121 mg/dL (>39); HDL-Particle (Total) 52.8 umol/L (>=30.5); LDL Particle 1389 nmol/L (<1000); LDL Size 21.3 nm (>20.5); LDL-Cholsterol 194 mg/dL (0-99); LP-IR Score 30 (<=45); Small LDL- Particle <90 nmol/L (<=527); Triglycerides 154 mg/dL (0-149)
== END ==
LOC: LAB 14:20
PROVIDERS: PCP Family Medicine; Referring Provider Family Medicine; Visit Provider Family Medicine
DX: E03.9 Hypothyroidism, unspecified (principal); I10 Essential (primary) hypertension; E78.5 Hyperlipidemia, unspecified; I47.10 Supraventricular tachycardia, unspecified
CPT/HCPCS: 36415; 80053; 80061; 82043; 82172; 82570; 83695; 83704; 84439; 84443; 85025

== ENCOUNTER → 2024-05-06 12:17 | Outpatient (CLI) | payer OTHER, SELFPAY ==
[2024-05-06 12:58] LABS: Add Manual Diff / Slide Review NO; Basophils Absolute Auto 0 /uL (0-100); Basophils Percent Auto 0.2 % (0-2); Eosinophils Absolute Auto 100 /uL (0-450); Eosinophils Percent Auto 1.6 % (2-4); Hematocrit 35.7 % (36-46); Hemoglobin 12.1 g/dL (12.0-16.0); Lymphocytes Absolute Auto 1800 /uL (1100-4500); Lymphocytes Percent Auto 24.6 % (25-40); Mean Corpuscular HGB Conc 33.9 % (30-36); Mean Corpuscular Hemoglobin 34.5 PG (26-34); Mean Corpuscular Volume 101.7 fL (80-100); Monocytes Absolute Auto 700 /uL (0-900); Monocytes Percent Auto 9.5 % (3-14); Neutrophils Absolute Auto 4800 /uL (1500-7000); Neutrophils Percent Auto 64.1 % (50-75); Platelet Count 866 X10^3/uL (150-400); Red Blood Cell Count 3.51 X10^6/uL (4.0-5.2); Red Cell Distribution Width 12.8 % (11.6-14.8); White Blood Cell Count 7.5 X10^3/uL (4.5-11.0)
[2024-05-06 13:10] LABS: Anisocytosis 1+
[2024-05-06 13:19] LABS: Alanine Aminotransferase 10 IU/L (<35); Albumin 4.1 g/dL (3.5-5.0); Albumin Globulin Ratio 1.3 (1.0-2.8); Alkaline Phosphatase 109 U/L (38-126); Aspartate Aminotransferase 24 IU/L (14-36); BUN Creatinine Ratio 18.9 (6-22); Bilirubin Total 0.4 mg/dL (0.2-1.3); Blood Urea Nitrogen 14 mg/dL (7-17); Calcium 9.8 mg/dL (8.4-10.2); Carbon Dioxide 28 mmol/L (22-32); Chloride 100 mmol/L (98-107); Cholesterol 173 mg/dL (140-199); Estimated Glomerular Filt Rate > 60 mL/min (>60); Globulin 3.1 g/dL (1.7-4.1); Glucose 100 mg/dL (80-110); HDL Cholesterol 51 mg/dL (40-60); HEMOLYSIS < 15 (0-50); LDL Cholesterol Calculated 92 mg/dL (<100); Potassium 4.7 mmol/L (3.4-5.1); Sodium 139 mmol/L (137-145); Total Protein 7.2 g/dL (6.3-8.2); Triglycerides 149 mg/dL (35-150)
[2024-05-06 13:53] LABS: TSH w/ Reflex to FT4 0.43 uIU/mL (0.47-4.68)
[2024-05-06 19:19] LABS: Creatinine Urine Random 65.09 mg/dL
[2024-05-06 19:29] LABS: Microalbumin Urine Random < 0.6 mg/dL (0-1.6)
[2024-05-08 03:36] LABS: Apolipoprotein B 92 mg/dL (<90)
== END ==
PROVIDERS: PCP Family Medicine; Referring Provider Family Medicine; Visit Provider Family Medicine
DX: E03.9 Hypothyroidism, unspecified (principal); I10 Essential (primary) hypertension; E78.5 Hyperlipidemia, unspecified; N95.1 Menopausal and female climacteric states; I47.10 Supraventricular tachycardia, unspecified
CPT/HCPCS: 36415; 80053; 80061; 82043; 82172; 82570; 84439; 84443; 85025

== ENCOUNTER → 2024-05-12 14:36 | Outpatient (CLI) | payer OTHER, SELFPAY ==
[2024-05-12 14:52] LABS: Add Manual Diff / Slide Review NO; Basophils Absolute Auto 0 /uL (0-100); Basophils Percent Auto 0.4 % (0-2); Eosinophils Absolute Auto 100 /uL (0-450); Eosinophils Percent Auto 0.5 % (2-4); Hematocrit 34.8 % (36-46); Hemoglobin 11.6 g/dL (12.0-16.0); Lymphocytes Absolute Auto 2000 /uL (1100-4500); Mean Corpuscular HGB Conc 33.4 % (30-36); Mean Corpuscular Hemoglobin 33.9 PG (26-34); Mean Corpuscular Volume 101.4 fL (80-100); Monocytes Absolute Auto 1000 /uL (0-900); Monocytes Percent Auto 7.6 % (3-14); Neutrophils Absolute Auto 10400 /uL (1500-7000); Neutrophils Percent Auto 76.5 % (50-75); Platelet Count 688 X10^3/uL (150-400); Red Blood Cell Count 3.43 X10^6/uL (4.0-5.2); Red Cell Distribution Width 12.9 % (11.6-14.8); White Blood Cell Count 13.6 X10^3/uL (4.5-11.0)
== END ==
PROVIDERS: PCP Family Medicine; Referring Provider Family Medicine; Visit Provider Family Medicine
DX: D75.839 Thrombocytosis, unspecified (principal)
CPT/HCPCS: 36415; 85025

== ENCOUNTER → 2024-05-13 15:32 | Outpatient (CLI) | payer OTHER, SELFPAY ==
--- NOTE | 2024-05-13 15:35 | DI.MG.S_ITS ---
MM screening mammo BI: 05/13/2024. BI-RADS: 1 CLINICAL: 63-year old female for bilateral screening mammogram. Tyrer-Cuzick lifetime risk of 4.3%. No personal or first-degree family history of breast cancer. PRIOR EXAMS 03/20/2020, 04/04/2018, 03/30/2017, 06/23/2015. MAMMOGRAPHY TECHNIQUE: 2D and 3D (tomosynthesis) digital mammographic views obtained, with additional images as needed for full coverage. Current study was also evaluated with a Computer Aided Detection (CAD) system. DENSITY C. The breasts are heterogeneously dense, which may obscure small masses. MAMMOGRAPHY FINDINGS Bilateral: No suspicious mass, asymmetry, microcalcification, or other abnormality seen. IMPRESSION: * No evidence of malignancy. RECOMMENDATIONS Bilateral * Annual screening mammography. OVERALL ASSESSMENT CATEGORY BI-RADS-1: Negative. The [employer] recommends annual screening mammography beginning at age 40 for women with average risk of breast cancer. ELECTRONICALLY SIGNED: Kristen Vega M.D. on 05/14/2024 at 08:39:50 AM PT Interpreting Station ID: [id number]
--- NOTE | 2024-05-13 15:35 | DI.RAD.S_ITS ---
PROCEDURE: XR CHEST 2V INDICATIONS: subacute cough TECHNIQUE: 2 views of the chest were acquired. COMPARISON: None. FINDINGS: Surgical changes and devices: None. Lungs and pleura: Ill-defined airspace opacity in right infrahilar region is seen. No pleural effusions or pneumothorax. Mediastinum: Mediastinal contours are normal. Heart size is normal. Bones and chest wall: No suspicious bony abnormalities. Soft tissues appear unremarkable. IMPRESSION: Finding is concerning for small right middle lobe infiltrate. Left lung is clear. No pleural effusion or pneumothorax. Dictated by: Tee Hayes M.D. on 05/13/2024 at 16:09 Approved by: Tee Hayes M.D. on 05/13/2024 at 16:10
== END ==
LOC: MAMMO 15:34
PROVIDERS: PCP Family Medicine; Referring Provider Family Medicine; Visit Provider Family Medicine
DX: Z12.31 Encounter for screening mammogram for malignant neoplasm of breast (principal); R92.333 Mammographic heterogeneous density, bilateral breasts; R05.1 Acute cough; D72.829 Elevated white blood cell count, unspecified
CPT/HCPCS: 71046; 77063; 77067

== ENCOUNTER → 2024-05-29 15:02 | Outpatient (CLI) | payer OTHER, SELFPAY ==
[2024-05-29 16:22] LABS: Add Manual Diff / Slide Review NO; Basophils Absolute Auto 0 /uL (0-100); Basophils Percent Auto 0.7 % (0-2); Eosinophils Absolute Auto 200 /uL (0-450); Eosinophils Percent Auto 3.7 % (2-4); Hematocrit 33.2 % (36-46); Hemoglobin 11.4 g/dL (12.0-16.0); Lymphocytes Absolute Auto 2100 /uL (1100-4500); Lymphocytes Percent Auto 38.4 % (25-40); Mean Corpuscular HGB Conc 34.3 % (30-36); Mean Corpuscular Hemoglobin 34.8 PG (26-34); Mean Corpuscular Volume 101.4 fL (80-100); Monocytes Absolute Auto 600 /uL (0-900); Monocytes Percent Auto 11.8 % (3-14); Neutrophils Absolute Auto 2500 /uL (1500-7000); Neutrophils Percent Auto 45.4 % (50-75); Red Blood Cell Count 3.27 X10^6/uL (4.0-5.2); Red Cell Distribution Width 13.4 % (11.6-14.8); White Blood Cell Count 5.5 X10^3/uL (4.5-11.0)
[2024-05-29 16:56] LABS: Anisocytosis 1+
[2024-05-29 16:59] LABS: Platelet Count 767 X10^3/uL (150-400)
[2024-05-29 17:35] LABS: Vitamin B12 521 pg/mL (239-931)
== END ==
PROVIDERS: PCP Family Medicine; Referring Provider Family Medicine; Visit Provider Family Medicine
DX: D64.9 Anemia, unspecified (principal); D72.829 Elevated white blood cell count, unspecified; J18.9 Pneumonia, unspecified organism; R53.83 Other fatigue; R91.8 Other nonspecific abnormal finding of lung field; D75.89 Other specified diseases of blood and blood-forming organs
CPT/HCPCS: 36415; 82607; 85025

== ENCOUNTER → 2024-06-03 15:50 | Outpatient (CLI) | payer OTHER, SELFPAY ==
--- NOTE | 2024-06-03 15:51 | DI.CT.S_ITS ---
PROCEDURE: CT CHEST WO CON INDICATIONS: right lung mass/abscess TECHNIQUE: Noncontrast 5 mm thick sections acquired from the pulmonary apices to the posterior costophrenic angles. 1 mm lung window, 5 mm thick coronal and sagittal and 7 mm axial MIP reformats were then acquired. For radiation dose reduction, the following was used: automated exposure control, adjustment of mA and/or kV according to patient size. COMPARISON: [facility], CR, XR CHEST 2V, 05/13/2024, 14:53. FINDINGS: Image quality: Diagnostic. Lower Neck: No enlarged lymph nodes. Thyroid: No thyroid nodules which require sonographic follow up, per consensus guidelines. Axillae: No enlarged lymph nodes. Chest Wall: Unremarkable. Bones: No aggressive appearing bony lesion. No displaced rib fracture. No acute vertebral body compression fracture. Lungs and Pleura: No pneumothorax or pleural effusions. There is biapical scarring. Scattered atelectasis in posterior aspect of bilateral lower lobes are seen. Wedge-shaped airspace consolidation involving anterior medial aspect of right middle lobe extending to right infrahilar region. Spiculated nodular opacity in posterior lateral aspect of right lower lobe near right lung base is also seen and measures 1.5 x 1 cm in size series 3, image 223. No other suspicious pulmonary nodule or mass is seen. Heart: Heart size is mildly enlarged. No pericardial effusion. Thoracic Vessels: The aorta and pulmonary arteries demonstrate normal size. Adms-an-kkvqcmzx single-vessel coronary artery atherosclerotic calcification is seen. Mediastinum and Renate: No enlarged lymph nodes. Esophagus: No wall thickening. No hiatal hernia. Upper Abdomen: Visualized upper abdomen solid organs and bowel loops appear normal. IMPRESSION: 1. Wedge-shaped masslike consolidation involving anterior medial aspect of right middle lobe extending to right infrahilar region. Smaller spiculated nodular density in posterior lateral aspect of right lower lobe near right lung base as above. Finding may represent pulmonary infiltrates versus atelectasis. Underlying neoplastic process cannot be excluded. Clinical and imaging follow-up until resolution is recommended. The right middle lobe lesion is amenable endobronchial evaluation if indicated. 2. No mediastinal or hilar lymphadenopathy. Dictated by: Tee Hayes M.D. on 06/03/2024 at 22:05 Approved by: Tee Hayes M.D. on 06/03/2024 at 22:11
== END ==
PROVIDERS: PCP Family Medicine; Referring Provider Family Medicine; Visit Provider Family Medicine
DX: R91.8 Other nonspecific abnormal finding of lung field (principal); I25.10 Atherosclerotic heart disease of native coronary artery without angina pectoris
CPT/HCPCS: 71250